=== PATIENT | male | born 1940 | race Caucasian/White ===

== ENCOUNTER 2021-01-14 11:00 | Inpatient (IN) | payer MEDICARE ==
[~2021-01-14] VITALS: Ht 177.8 cm; Wt 85.1 kg
[~2021-01-14 11:00] MED LIST: PRED20 PO
[2021-01-14] MEDS ORDERED: DEXAMETHASONE SOD PHOS 4 MG/ML VIAL IVP ONE (11:15)
[2021-01-14 11:27] LABS: BASOPHILS % (AUTO) 0.4 % (0.0-2.0); EOSINOPHILS % (AUTO) 0 % (1.0-6.0); HEMATOCRIT 50.2 % (41-53); HEMOGLOBIN 15.7 g/dL (13.5-17.5); LYMPHOCYTES # (AUTO) 1.8 K/uL (1.0-4.8); LYMPHOCYTES % (AUTO) 10.7 % (22.0-44.0); MEAN CORPUSCULAR HEMOGLOBIN 28.2 pg (26.0-34.0); MEAN CORPUSCULAR HGB CONC 31.3 G/dL (31.0-37.0); MEAN CORPUSCULAR VOLUME 90 fL (80-100); MONOCYTES # (AUTO) 0.8 K/uL (0.1-1.0); MONOCYTES % (AUTO) 4.8 % (2.0-9.0); NEUTROPHILS % (AUTO) 84.1 % (40.0-70.0); RED BLOOD CELL COUNT(AUTO) 5.58 MIL/uL (4.50-5.90); RED CELL DISTRIBUTION WIDTH 15.4 % (11.5-14.5)
[2021-01-14 11:37] LABS: INR 1.1 (0.9-1.1); PROTHROMBIN TIME 11.3 SEC (9.4-11.6)
[2021-01-14 11:45] LABS: CALCIUM, TOTAL 9.3 mg/dL (8.8-10.5); CREATININE 1.75 mg/dL (0.60-1.30)
[2021-01-14 11:47] LABS: PLATELET COUNT (AUTO) 422 K/uL (150-450)
[2021-01-14 12:25] LABS: ALBUMIN 2.3 g/dL (3.4-5.0); BILIRUBIN,TOTAL 0.5 mg/dL (0.1-1.0); TOTAL PROTEIN, SERUM 7.4 g/dL (6.4-8.2)
[2021-01-14] MEDS ORDERED: GLY IV SCH ×4 (13:00)
[2021-01-14] MEDS ORDERED: IGA AVG IV SCH ×4 (13:00)
[2021-01-14] MEDS ORDERED: IMMUNE GLOBUL IV SCH ×4 (13:00)
[2021-01-14] MEDS ORDERED: [UNRECOGNIZED DRUG - OTHER] IV SCH ×4 (13:00)
[2021-01-14 13:08] LABS: ABG A-A DIFF O2 496.7 mmHg (10-20.0); ABG BASE EXCESS -2.6 mmol/L (-2.0-3.0); ABG CARBOXYHEMOGLOBIN 0.1 % (0.0-1.5); ABG HCO3 22.7 mmol/L (22.0-26.0); ABG METHEMOGLOBIN 0.4 % (0.0-1.5); ABG OXYGEN CONTENT 22.4 mL/dL (15.0-23.0); ABG OXYGEN SATURATION 99.1 % (95.0-98.0); ABG OXYHEMOGLOBIN 98.6 % (94.0-100.0); ABG PCO2 37 mmHg (35-45); ABG PH 7.394 (7.35-7.450); ABG TOTAL HEMOGLOBIN 15.9 G/dL (12.0-18.0); PO2, ARTERIAL BG 180.1 mmHg (75.0-83.0); SOURCE, BLOOD GAS ARTERIAL; TEMPERATURE, FAHRENHEIT, BG 97.8 FAHREN (96.0-98.6)
[2021-01-14 13:09] LABS: O2 DEVICE,BLOOD GAS VENTILATOR (ROOM AIR); PEEP,BG 5 cm H2O; SITE, BLOOD GAS RT RADIAL; SPONTANEOUS VT, BG 463 ml; VT, ABG 500 ml
[2021-01-14] MEDS ORDERED: SODIUM CHLORIDE 0.9% 1,000 ML IV ONE (13:15)
[2021-01-14 13:52] LABS: COVID AG,FIA SOURCE NASOPHARYNGEAL
[2021-01-14 13:56] LABS: APPEARANCE,URINE CLOUDY (CLEAR); BILIRUBIN,URINE NEGATIVE (NEGATIVE); GLUCOSE, URINE (UA) NEGATIVE (NEGATIVE); KETONES,URINE NEGATIVE (NEGATIVE); LEUKOCYTE ESTERASE ,URINE TRACE (NEGATIVE); NITRATE,URINE NEGATIVE (NEGATIVE); OCCULT BLOOD,URINE LARGE (NEGATIVE); PH,URINE 5.5 (5.0-8.0); PROTEIN,URINE SEE CONFIRM (NEGATIVE); UROBILINOGEN,URINE 0.2 mg/dL (<=1.0)
[2021-01-14 14:19] LABS: SULFOSALICYLIC ACID,URINE 3+ (Negative)
[2021-01-14 14:20] LABS: BACTERIA,URINE Moderate /HPF (None Seen); RBC,URINE 26-50 /HPF (0-2); WBC,URINE 0-2 /HPF (0-5)
[2021-01-14] MEDS ORDERED: LevETIRAcetam 1,000 MG in DEXTROSE 5%-WATER 100 ML IV ONE (14:30)
[2021-01-14] MEDS ORDERED: 0.9% SODIUM CHLORIDE 10 ML SYRINGE IVP PRN (15:00)
[2021-01-14] MEDS ORDERED: *CLINICAL-CEFEPIME DOSING CLINICAL ONE (15:30)
[2021-01-14 16:00] VITALS: BP 96/65
[2021-01-14] MEDS: CEFEPIME HCL 1 GM in DEXTROSE 5%-WATER 50 ML IV SCH (16:46)
[2021-01-14] MEDS ORDERED: OxyCODONE HCL/ACETAMINOPHEN 5-325 MG TABLET NG PRN (17:45)
[2021-01-14] MEDS ORDERED: LORazepam 2 MG/ML VIAL IVP PRN (17:45)
[2021-01-14] MEDS ORDERED: MORPHINE SULFATE 2 MG/ML SYRINGE IVP PRN (17:45)
[2021-01-14] MEDS: MetroNIDAZOLE 500 MG/NACL 100 ML IV SCH (18:17)
[2021-01-14] MEDS: IGA AVG IV SCH ×4 (18:18)
[2021-01-14] MEDS: SODIUM CHLORIDE 0.9% 1,000 ML IV SCH (18:18)
[2021-01-14] MEDS: GLY IV SCH ×4 (18:18)
[2021-01-14] MEDS: IMMUNE GLOBUL IV SCH ×4 (18:18)
[2021-01-14] MEDS: [UNRECOGNIZED DRUG - OTHER] IV SCH ×4 (18:18)
[2021-01-14] MEDS: ALBUTEROL SULFATE 2.5 MG/0.5 ML NEB SOLUTION NEB SCH (20:06)
[2021-01-14] MEDS: IPRATROPIUM BROMIDE 0.5 MG/2.5 ML NEB SOLUTION NEB SCH (20:06)
[2021-01-14 20:22] VITALS: BP 108/68
[2021-01-14] MEDS ORDERED: LevETIRAcetam 500 MG in DEXTROSE 5%-WATER 100 ML IV SCH (21:00)
[2021-01-14 22:05] VITALS: BP 102/62
[2021-01-14] MEDS: DOCUSATE SODIUM 100 MG/10 ML LIQUID UDCUP NG SCH (22:57)
[2021-01-14] MEDS: HEPARIN SODIUM,PORCINE 5,000 UNITS/ML VIAL SQ SCH (22:58)
[2021-01-15] VITALS (11 sets, daily range): BP systolic 81–113; BP diastolic 51–80
[2021-01-15] MEDS: IPRATROPIUM BROMIDE 0.5 MG/2.5 ML NEB SOLUTION NEB SCH ×4 (01:46→19:49)
[2021-01-15] MEDS: ALBUTEROL SULFATE 2.5 MG/0.5 ML NEB SOLUTION NEB SCH ×4 (01:46→19:49)
[2021-01-15] MEDS: MetroNIDAZOLE 500 MG/NACL 100 ML IV SCH ×3 (02:24→17:20)
[2021-01-15] MEDS: SODIUM CHLORIDE 0.9% 1,000 ML IV SCH ×3 (02:41→23:09)
[2021-01-15] MEDS: PROPOFOL 1000 MG/ISO-OSM 100 ML IV PRN ×3 (04:02→23:09)
[2021-01-15] MEDS: CEFEPIME HCL 1 GM in DEXTROSE 5%-WATER 50 ML IV SCH ×2 (05:28→16:49)
[2021-01-15 05:49] LABS: BASOPHILS % (AUTO) 0.2 % (0.0-2.0); EOSINOPHILS % (AUTO) 0 % (1.0-6.0); HEMATOCRIT 38.3 % (41-53); HEMOGLOBIN 11.8 g/dL (13.5-17.5); LYMPHOCYTES # (AUTO) 1.3 K/uL (1.0-4.8); LYMPHOCYTES % (AUTO) 8.4 % (22.0-44.0); MEAN CORPUSCULAR HEMOGLOBIN 27.5 pg (26.0-34.0); MEAN CORPUSCULAR HGB CONC 30.8 G/dL (31.0-37.0); MEAN CORPUSCULAR VOLUME 89 fL (80-100); MONOCYTES # (AUTO) 0.7 K/uL (0.1-1.0); MONOCYTES % (AUTO) 4.6 % (2.0-9.0); NEUTROPHILS # (AUTO) 13.5 K/uL (1.8-7.7); PLATELET COUNT (AUTO) 252 K/uL (150-450); RED CELL DISTRIBUTION WIDTH 15.1 % (11.5-14.5)
[2021-01-15 05:53] LABS: NEUTROPHILS % (AUTO) 86.8 % (40.0-70.0)
[2021-01-15 06:33] LABS: ALBUMIN 1.6 g/dL (3.4-5.0); BILIRUBIN,TOTAL 0.3 mg/dL (0.1-1.0); CALCIUM, TOTAL 8.3 mg/dL (8.8-10.5); CREATININE 1.53 mg/dL (0.60-1.30); POTASSIUM 4.6 mmol/L (3.5-5.1); TOTAL PROTEIN, SERUM 6.3 g/dL (6.4-8.2)
[2021-01-15] MEDS: HEPARIN SODIUM,PORCINE 5,000 UNITS/ML VIAL SQ SCH ×2 (08:42→23:09)
[2021-01-15] MEDS: LANSOPRAZOLE 30 MG SOLUBLE TABLET NG SCH (08:42)
[2021-01-15] MEDS: DOCUSATE SODIUM 100 MG/10 ML LIQUID UDCUP NG SCH ×2 (08:42→21:00)
[2021-01-15] MEDS: ACETAMINOPHEN 325 MG TABLET NG PRN (08:43)
[2021-01-15] MEDS: NOREPINEPHRINE 4 MG/D5%-WATER 250 ML IV PRN (15:10)
[2021-01-15] MEDS ORDERED: ETOMIDATE 2 MG/ML 10 ML VIAL IV ONE (16:37)
[2021-01-15] MEDS: FentaNYL CITRATE PF 100 MCG/2 ML VIAL IVP PRN (16:51)
[2021-01-15] MEDS: IMMUNE GLOBUL IV SCH ×4 (17:19)
[2021-01-15] MEDS: IGA AVG IV SCH ×4 (17:19)
[2021-01-15] MEDS: [UNRECOGNIZED DRUG - OTHER] IV SCH ×4 (17:19)
[2021-01-15] MEDS: GLY IV SCH ×4 (17:19)
[2021-01-16] VITALS (8 sets, daily range): BP systolic 85–122; BP diastolic 50–73
[2021-01-16] MEDS: NOREPINEPHRINE 4 MG/D5%-WATER 250 ML IV PRN ×3 (00:22→22:30)
[2021-01-16] MEDS: SODIUM CHLORIDE 0.9% 1,000 ML IV SCH ×4 (01:45→18:19)
[2021-01-16] MEDS: ALBUTEROL SULFATE 2.5 MG/0.5 ML NEB SOLUTION NEB SCH ×4 (01:56→20:52)
[2021-01-16] MEDS: IPRATROPIUM BROMIDE 0.5 MG/2.5 ML NEB SOLUTION NEB SCH ×4 (01:58→20:52)
[2021-01-16] MEDS: MetroNIDAZOLE 500 MG/NACL 100 ML IV SCH ×3 (02:06→18:19)
[2021-01-16 04:06] LABS: HEPATITIS C AB (EIA) <0.1 s/co ratio (0.0-0.9)
[2021-01-16 05:47] LABS: BASOPHILS % (AUTO) 0.3 % (0.0-2.0); EOSINOPHILS % (AUTO) 0.2 % (1.0-6.0); HEMATOCRIT 32.7 % (41-53); HEMOGLOBIN 10.4 g/dL (13.5-17.5); LYMPHOCYTES # (AUTO) 1.8 K/uL (1.0-4.8); MEAN CORPUSCULAR HEMOGLOBIN 28.9 pg (26.0-34.0); MEAN CORPUSCULAR HGB CONC 31.7 G/dL (31.0-37.0); MEAN CORPUSCULAR VOLUME 91 fL (80-100); MONOCYTES # (AUTO) 0.7 K/uL (0.1-1.0); MONOCYTES % (AUTO) 4.8 % (2.0-9.0); NEUTROPHILS # (AUTO) 11.5 K/uL (1.8-7.7); NEUTROPHILS % (AUTO) 81.7 % (40.0-70.0); PLATELET COUNT (AUTO) 222 K/uL (150-450); RED BLOOD CELL COUNT(AUTO) 3.59 MIL/uL (4.50-5.90); RED CELL DISTRIBUTION WIDTH 15.6 % (11.5-14.5)
[2021-01-16] MEDS: CEFEPIME HCL 1 GM in DEXTROSE 5%-WATER 50 ML IV SCH ×2 (06:19→16:42)
[2021-01-16 06:21] LABS: ALBUMIN 1.5 g/dL (3.4-5.0); BILIRUBIN,TOTAL 0.3 mg/dL (0.1-1.0); CALCIUM, TOTAL 7.6 mg/dL (8.8-10.5); CREATININE 1.32 mg/dL (0.60-1.30); MAGNESIUM 2.2 mg/dL (1.80-2.40); PHOSPHORUS 3.3 mg/dL (2.5-4.9); POTASSIUM 3.6 mmol/L (3.5-5.1); TOTAL PROTEIN, SERUM 6.3 g/dL (6.4-8.2)
[2021-01-16] MEDS: PROPOFOL 1000 MG/ISO-OSM 100 ML IV PRN ×2 (07:15→23:05)
[2021-01-16] MEDS: HEPARIN SODIUM,PORCINE 5,000 UNITS/ML VIAL SQ SCH ×2 (09:03→21:56)
[2021-01-16] MEDS: DOCUSATE SODIUM 100 MG/10 ML LIQUID UDCUP NG SCH ×2 (09:03→21:56)
[2021-01-16] MEDS: LANSOPRAZOLE 30 MG SOLUBLE TABLET NG SCH (09:03)
[2021-01-16] MEDS: IGA AVG IV SCH ×4 (17:15)
[2021-01-16] MEDS: IMMUNE GLOBUL IV SCH ×4 (17:15)
[2021-01-16] MEDS: GLY IV SCH ×4 (17:15)
[2021-01-16] MEDS: [UNRECOGNIZED DRUG - OTHER] IV SCH ×4 (17:15)
[2021-01-16] MEDS ORDERED: SODIUM CHLORIDE 0.9% 250 ML IV ONE (17:17)
[2021-01-16] MEDS: FentaNYL CITRATE PF 100 MCG/2 ML VIAL IVP PRN (21:33)
[2021-01-17] MEDS: ALBUTEROL SULFATE 2.5 MG/0.5 ML NEB SOLUTION NEB SCH ×4 (01:04→19:32)
[2021-01-17] MEDS: IPRATROPIUM BROMIDE 0.5 MG/2.5 ML NEB SOLUTION NEB SCH ×4 (01:04→19:32)
[2021-01-17] MEDS: MetroNIDAZOLE 500 MG/NACL 100 ML IV SCH ×3 (02:22→17:54)
[2021-01-17] MEDS: SODIUM CHLORIDE 0.9% 1,000 ML IV SCH ×2 (03:25→09:06)
[2021-01-17] MEDS: CEFEPIME HCL 1 GM in DEXTROSE 5%-WATER 50 ML IV SCH ×2 (04:29→16:31)
[2021-01-17] MEDS: PROPOFOL 1000 MG/ISO-OSM 100 ML IV PRN ×2 (06:03→17:00)
[2021-01-17 08:00] VITALS: BP 113/65
[2021-01-17] MEDS: DOCUSATE SODIUM 100 MG/10 ML LIQUID UDCUP NG SCH ×2 (09:05→20:31)
[2021-01-17] MEDS: LANSOPRAZOLE 30 MG SOLUBLE TABLET NG SCH (09:05)
[2021-01-17] MEDS: ETHYL ALCOHOL 62% ANTISEPTIC NASAL INHALANT 0.6 ML AMPUL NASAL SCH ×2 (09:05→20:31)
[2021-01-17] MEDS: HEPARIN SODIUM,PORCINE 5,000 UNITS/ML VIAL SQ SCH ×2 (09:05→20:30)
[2021-01-17 12:00] VITALS: BP 116/58
[2021-01-17] MEDS: NOREPINEPHRINE 4 MG/D5%-WATER 250 ML IV PRN (14:35)
[2021-01-17 16:00] VITALS: BP 91/53
[2021-01-17] MEDS: [UNRECOGNIZED DRUG - OTHER] IV SCH ×4 (17:42)
[2021-01-17] MEDS: IMMUNE GLOBUL IV SCH ×4 (17:42)
[2021-01-17] MEDS: GLY IV SCH ×4 (17:42)
[2021-01-17] MEDS: IGA AVG IV SCH ×4 (17:42)
[2021-01-17 20:00] VITALS: BP 119/69
[2021-01-17 22:01] VITALS: BP 111/69
[2021-01-18] VITALS (8 sets, daily range): BP systolic 94–110; BP diastolic 52–66
[2021-01-18] MEDS: SODIUM CHLORIDE 0.9% 1,000 ML IV SCH ×4 (00:25→17:34)
[2021-01-18] MEDS: PROPOFOL 1000 MG/ISO-OSM 100 ML IV PRN ×3 (00:25→21:23)
[2021-01-18] MEDS: IPRATROPIUM BROMIDE 0.5 MG/2.5 ML NEB SOLUTION NEB SCH ×4 (01:23→19:41)
[2021-01-18] MEDS: ALBUTEROL SULFATE 2.5 MG/0.5 ML NEB SOLUTION NEB SCH ×4 (01:23→19:41)
[2021-01-18] MEDS: MetroNIDAZOLE 500 MG/NACL 100 ML IV SCH ×3 (01:57→17:45)
[2021-01-18] MEDS: CEFEPIME HCL 1 GM in DEXTROSE 5%-WATER 50 ML IV SCH ×2 (04:53→17:03)
[2021-01-18] MEDS: HEPARIN SODIUM,PORCINE 5,000 UNITS/ML VIAL SQ SCH ×2 (08:00→21:37)
[2021-01-18] MEDS: DOCUSATE SODIUM 100 MG/10 ML LIQUID UDCUP NG SCH ×2 (08:00→21:37)
[2021-01-18] MEDS: LANSOPRAZOLE 30 MG SOLUBLE TABLET NG SCH (08:01)
[2021-01-18] MEDS: ETHYL ALCOHOL 62% ANTISEPTIC NASAL INHALANT 0.6 ML AMPUL NASAL SCH ×2 (08:01→21:37)
[2021-01-18] MEDS: GLY IV SCH ×4 (17:33)
[2021-01-18] MEDS: IMMUNE GLOBUL IV SCH ×4 (17:33)
[2021-01-18] MEDS: IGA AVG IV SCH ×4 (17:33)
[2021-01-18] MEDS: [UNRECOGNIZED DRUG - OTHER] IV SCH ×4 (17:33)
[2021-01-18] MEDS ORDERED: SODIUM CHLORIDE 0.9% 250 ML IV ONE (17:46)
[2021-01-18] MEDS: NOREPINEPHRINE 4 MG/D5%-WATER 250 ML IV PRN (21:23)
[2021-01-18] MEDS: FentaNYL CITRATE PF 100 MCG/2 ML VIAL IVP PRN (21:47)
[2021-01-19 00:06] VITALS: BP 110/62
[2021-01-19] MEDS: MetroNIDAZOLE 500 MG/NACL 100 ML IV SCH ×3 (01:32→17:56)
[2021-01-19] MEDS: ALBUTEROL SULFATE 2.5 MG/0.5 ML NEB SOLUTION NEB SCH ×4 (01:45→19:38)
[2021-01-19] MEDS: SODIUM CHLORIDE 0.9% 1,000 ML IV SCH ×3 (01:45→17:56)
[2021-01-19] MEDS: IPRATROPIUM BROMIDE 0.5 MG/2.5 ML NEB SOLUTION NEB SCH ×4 (01:45→19:38)
[2021-01-19 04:30] VITALS: BP 118/64
[2021-01-19] MEDS: PROPOFOL 1000 MG/ISO-OSM 100 ML IV PRN ×3 (04:36→22:39)
[2021-01-19] MEDS: CEFEPIME HCL 1 GM in DEXTROSE 5%-WATER 50 ML IV SCH ×2 (05:11→17:02)
[2021-01-19] MEDS ORDERED: SODIUM CHLORIDE 0.9% 250 ML IV ONE (05:45)
[2021-01-19 08:00] VITALS: BP 111/62
[2021-01-19] MEDS: LANSOPRAZOLE 30 MG SOLUBLE TABLET NG SCH (08:03)
[2021-01-19] MEDS: HEPARIN SODIUM,PORCINE 5,000 UNITS/ML VIAL SQ SCH ×2 (08:03→22:18)
[2021-01-19] MEDS: ETHYL ALCOHOL 62% ANTISEPTIC NASAL INHALANT 0.6 ML AMPUL NASAL SCH ×2 (08:03→22:18)
[2021-01-19] MEDS: DOCUSATE SODIUM 100 MG/10 ML LIQUID UDCUP NG SCH ×2 (08:03→22:18)
[2021-01-19 09:20] LABS: BASOPHILS % (AUTO) 0.6 % (0.0-2.0); EOSINOPHILS % (AUTO) 5.3 % (1.0-6.0); HEMATOCRIT 32.5 % (41-53); HEMOGLOBIN 10.1 g/dL (13.5-17.5); LYMPHOCYTES # (AUTO) 1.9 K/uL (1.0-4.8); LYMPHOCYTES % (AUTO) 25.3 % (22.0-44.0); MEAN CORPUSCULAR HEMOGLOBIN 28.1 pg (26.0-34.0); MEAN CORPUSCULAR HGB CONC 31.2 G/dL (31.0-37.0); MEAN CORPUSCULAR VOLUME 90 fL (80-100); MONOCYTES # (AUTO) 0.6 K/uL (0.1-1.0); MONOCYTES % (AUTO) 8.6 % (2.0-9.0); NEUTROPHILS # (AUTO) 4.4 K/uL (1.8-7.7); NEUTROPHILS % (AUTO) 60.2 % (40.0-70.0); PLATELET COUNT (AUTO) 203 K/uL (150-450); RED BLOOD CELL COUNT(AUTO) 3.61 MIL/uL (4.50-5.90); RED CELL DISTRIBUTION WIDTH 15.5 % (11.5-14.5)
[2021-01-19 09:30] LABS: ANION GAP 7 mmol/L (8-16); CALCIUM, TOTAL 7.3 mg/dL (8.8-10.5); CARBON DIOXIDE 22 mmol/L (22-29); CHLORIDE 117 mmol/L (98-107); CREATININE 0.81 mg/dL (0.60-1.30); GLOMERULAR FILTR. RATE CALC > 60 mL/min (>60); GLUCOSE,RANDOM 123 mg/dL (70-110); POTASSIUM 3.1 mmol/L (3.5-5.1); SODIUM SERUM 146 mmol/L (136-145); UREA NITROGEN, BLOOD 12 mg/dL (7-18)
[2021-01-19 09:54] LABS: PLATELET MORPHOLOGY COMMENT LARGE PLTS PRESENT
[2021-01-19 12:00] VITALS: BP 107/56
[2021-01-19 16:00] VITALS: BP 102/53
[2021-01-19] MEDS: POTASSIUM CHL 10 MEQ/WATER 50 ML IV PRN ×3 (16:08→17:57)
[2021-01-19 20:00] VITALS: BP 118/66
[2021-01-19] MEDS: POTASSIUM CHLORIDE 10% 40 MEQ/30 ML LIQUID UDCUP PEG PRN (22:18)
[2021-01-20 00:02] VITALS: BP 113/66
[2021-01-20] MEDS: IPRATROPIUM BROMIDE 0.5 MG/2.5 ML NEB SOLUTION NEB SCH ×4 (02:09→20:19)
[2021-01-20] MEDS: ALBUTEROL SULFATE 2.5 MG/0.5 ML NEB SOLUTION NEB SCH ×4 (02:09→20:19)
[2021-01-20] MEDS: SODIUM CHLORIDE 0.9% 1,000 ML IV SCH (03:24)
[2021-01-20] MEDS: MetroNIDAZOLE 500 MG/NACL 100 ML IV SCH ×3 (03:25→18:03)
[2021-01-20 04:20] VITALS: BP 87/48
[2021-01-20] MEDS: CEFEPIME HCL 1 GM in DEXTROSE 5%-WATER 50 ML IV SCH ×2 (05:05→16:57)
[2021-01-20] MEDS: PROPOFOL 1000 MG/ISO-OSM 100 ML IV PRN ×2 (07:54→16:58)
[2021-01-20 08:00] VITALS: BP 84/47
[2021-01-20] MEDS: LANSOPRAZOLE 30 MG SOLUBLE TABLET NG SCH (08:01)
[2021-01-20] MEDS: ETHYL ALCOHOL 62% ANTISEPTIC NASAL INHALANT 0.6 ML AMPUL NASAL SCH ×2 (08:01→23:04)
[2021-01-20] MEDS: HEPARIN SODIUM,PORCINE 5,000 UNITS/ML VIAL SQ SCH ×2 (08:01→23:04)
[2021-01-20] MEDS: DOCUSATE SODIUM 100 MG/10 ML LIQUID UDCUP NG SCH ×2 (08:01→21:00)
[2021-01-20 10:20] LABS: ANION GAP 6 mmol/L (8-16); CALCIUM, TOTAL 7.4 mg/dL (8.8-10.5); CARBON DIOXIDE 24 mmol/L (22-29); CHLORIDE 118 mmol/L (98-107); CREATININE 0.79 mg/dL (0.60-1.30); GLOMERULAR FILTR. RATE CALC > 60 mL/min (>60); GLUCOSE,RANDOM 149 mg/dL (70-110); POTASSIUM 3.5 mmol/L (3.5-5.1); SODIUM SERUM 148 mmol/L (136-145); UREA NITROGEN, BLOOD 10 mg/dL (7-18)
[2021-01-20] MEDS ORDERED: SODIUM CHLORIDE 0.9% 250 ML IV ONE (11:19)
[2021-01-20] MEDS: NOREPINEPHRINE 4 MG/D5%-WATER 250 ML IV PRN (11:25)
[2021-01-20 12:00] VITALS: BP 97/53
[2021-01-20 16:00] VITALS: BP 115/66
[2021-01-20 20:00] VITALS: BP 110/52
[2021-01-20] MEDS: FentaNYL CITRATE PF 100 MCG/2 ML VIAL IVP PRN (23:04)
[2021-01-21 00:10] VITALS: BP 106/60
[2021-01-21] MEDS: ALBUTEROL SULFATE 2.5 MG/0.5 ML NEB SOLUTION NEB SCH ×4 (02:09→19:37)
[2021-01-21] MEDS: IPRATROPIUM BROMIDE 0.5 MG/2.5 ML NEB SOLUTION NEB SCH ×4 (02:09→19:37)
[2021-01-21] MEDS: MetroNIDAZOLE 500 MG/NACL 100 ML IV SCH ×3 (02:12→17:30)
[2021-01-21] MEDS: PROPOFOL 1000 MG/ISO-OSM 100 ML IV PRN ×2 (03:18→23:59)
[2021-01-21 04:20] VITALS: BP 97/53
[2021-01-21] MEDS: CEFEPIME HCL 1 GM in DEXTROSE 5%-WATER 50 ML IV SCH ×2 (05:49→17:29)
[2021-01-21 08:00] VITALS: BP 119/67
[2021-01-21 09:28] LABS: ANION GAP 6 mmol/L (8-16); CALCIUM, TOTAL 7.5 mg/dL (8.8-10.5); CARBON DIOXIDE 25 mmol/L (22-29); CHLORIDE 115 mmol/L (98-107); CREATININE 0.78 mg/dL (0.60-1.30); GLUCOSE,RANDOM 131 mg/dL (70-110); POTASSIUM 3.4 mmol/L (3.5-5.1); SODIUM SERUM 146 mmol/L (136-145); UREA NITROGEN, BLOOD 12 mg/dL (7-18)
[2021-01-21 09:49] LABS: GLOMERULAR FILTR. RATE CALC > 60 mL/min (>60); PHOSPHORUS 3.8 mg/dL (2.5-4.9)
[2021-01-21] MEDS: ETHYL ALCOHOL 62% ANTISEPTIC NASAL INHALANT 0.6 ML AMPUL NASAL SCH ×2 (10:00→20:36)
[2021-01-21] MEDS: DOCUSATE SODIUM 100 MG/10 ML LIQUID UDCUP NG SCH ×2 (10:00→20:38)
[2021-01-21] MEDS: HEPARIN SODIUM,PORCINE 5,000 UNITS/ML VIAL SQ SCH ×2 (10:00→20:36)
[2021-01-21] MEDS: LANSOPRAZOLE 30 MG SOLUBLE TABLET NG SCH (10:00)
[2021-01-21] MEDS: NOREPINEPHRINE 4 MG/D5%-WATER 250 ML IV PRN (10:09)
[2021-01-21 12:00] VITALS: BP 124/63
[2021-01-21] MEDS: POTASSIUM CHLORIDE 10% 40 MEQ/30 ML LIQUID UDCUP PEG PRN (13:51)
[2021-01-21 16:00] VITALS: BP 103/63
[2021-01-21 20:00] VITALS: BP 103/58
[2021-01-21 20:32] LABS: ANION GAP 9 mmol/L (8-16); CALCIUM, TOTAL 7.9 mg/dL (8.8-10.5); CARBON DIOXIDE 24 mmol/L (22-29); CHLORIDE 115 mmol/L (98-107); CREATININE 0.77 mg/dL (0.60-1.30); GLUCOSE,RANDOM 124 mg/dL (70-110); POTASSIUM 3.9 mmol/L (3.5-5.1); SODIUM SERUM 148 mmol/L (136-145); UREA NITROGEN, BLOOD 11 mg/dL (7-18)
[2021-01-21 20:36] LABS: GLOMERULAR FILTR. RATE CALC > 60 mL/min (>60)
[2021-01-22] VITALS (10 sets, daily range): BP systolic 92–120; BP diastolic 56–70
[2021-01-22] MEDS: MetroNIDAZOLE 500 MG/NACL 100 ML IV SCH ×3 (01:43→18:19)
[2021-01-22] MEDS: ALBUTEROL SULFATE 2.5 MG/0.5 ML NEB SOLUTION NEB SCH ×4 (02:32→19:14)
[2021-01-22] MEDS: IPRATROPIUM BROMIDE 0.5 MG/2.5 ML NEB SOLUTION NEB SCH ×4 (02:32→19:14)
[2021-01-22] MEDS: CEFEPIME HCL 1 GM in DEXTROSE 5%-WATER 50 ML IV SCH ×2 (06:08→17:06)
[2021-01-22] MEDS: NOREPINEPHRINE 4 MG/D5%-WATER 250 ML IV PRN (10:00)
[2021-01-22] MEDS: DOCUSATE SODIUM 100 MG/10 ML LIQUID UDCUP NG SCH ×2 (10:02→21:35)
[2021-01-22] MEDS: PROPOFOL 1000 MG/ISO-OSM 100 ML IV PRN (10:02)
[2021-01-22] MEDS: LANSOPRAZOLE 30 MG SOLUBLE TABLET NG SCH (10:02)
[2021-01-22] MEDS: ETHYL ALCOHOL 62% ANTISEPTIC NASAL INHALANT 0.6 ML AMPUL NASAL SCH ×2 (10:02→21:36)
[2021-01-22] MEDS: HEPARIN SODIUM,PORCINE 5,000 UNITS/ML VIAL SQ SCH ×2 (10:03→21:36)
[2021-01-23] VITALS (8 sets, daily range): BP systolic 93–132; BP diastolic 54–82
[2021-01-23] MEDS: PROPOFOL 1000 MG/ISO-OSM 100 ML IV PRN ×2 (00:27→10:41)
[2021-01-23] MEDS: IPRATROPIUM BROMIDE 0.5 MG/2.5 ML NEB SOLUTION NEB SCH ×4 (03:12→20:10)
[2021-01-23] MEDS: ALBUTEROL SULFATE 2.5 MG/0.5 ML NEB SOLUTION NEB SCH ×4 (03:12→20:10)
[2021-01-23] MEDS: DOCUSATE SODIUM 100 MG/10 ML LIQUID UDCUP NG SCH ×2 (08:29→21:09)
[2021-01-23] MEDS: LANSOPRAZOLE 30 MG SOLUBLE TABLET NG SCH (08:29)
[2021-01-23] MEDS: HEPARIN SODIUM,PORCINE 5,000 UNITS/ML VIAL SQ SCH ×2 (08:29→21:10)
[2021-01-23] MEDS: ETHYL ALCOHOL 62% ANTISEPTIC NASAL INHALANT 0.6 ML AMPUL NASAL SCH ×2 (08:29→21:16)
[2021-01-23] MEDS ORDERED: SODIUM CHLORIDE 0.9% 250 ML IV ONE (10:38)
[2021-01-24 00:01] VITALS: BP 116/71
[2021-01-24] MEDS: IPRATROPIUM BROMIDE 0.5 MG/2.5 ML NEB SOLUTION NEB SCH ×4 (01:56→19:33)
[2021-01-24] MEDS: ALBUTEROL SULFATE 2.5 MG/0.5 ML NEB SOLUTION NEB SCH ×4 (01:57→19:33)
[2021-01-24 04:46] VITALS: BP 118/82
[2021-01-24 08:00] VITALS: BP 107/59
[2021-01-24] MEDS: ETHYL ALCOHOL 62% ANTISEPTIC NASAL INHALANT 0.6 ML AMPUL NASAL SCH ×2 (08:20→22:18)
[2021-01-24] MEDS: PROPOFOL 1000 MG/ISO-OSM 100 ML IV PRN (08:21)
[2021-01-24] MEDS: LANSOPRAZOLE 30 MG SOLUBLE TABLET NG SCH (08:21)
[2021-01-24] MEDS: HEPARIN SODIUM,PORCINE 5,000 UNITS/ML VIAL SQ SCH ×2 (08:21→22:18)
[2021-01-24] MEDS: DOCUSATE SODIUM 100 MG/10 ML LIQUID UDCUP NG SCH ×2 (08:22→21:00)
[2021-01-24 12:00] VITALS: BP 118/92
[2021-01-24 16:00] VITALS: BP 86/49
[2021-01-24] MEDS: NOREPINEPHRINE 4 MG/D5%-WATER 250 ML IV PRN (19:45)
[2021-01-24 20:00] VITALS: BP 101/54
[2021-01-25] VITALS: BP 99/57
[2021-01-25] MEDS ORDERED: SODIUM CHLORIDE 0.9% 250 ML IV ONE (01:46)
[2021-01-25] MEDS: PROPOFOL 1000 MG/ISO-OSM 100 ML IV PRN ×2 (01:55→15:15)
[2021-01-25] MEDS: IPRATROPIUM BROMIDE 0.5 MG/2.5 ML NEB SOLUTION NEB SCH ×4 (02:26→19:56)
[2021-01-25] MEDS: ALBUTEROL SULFATE 2.5 MG/0.5 ML NEB SOLUTION NEB SCH ×4 (02:26→19:56)
[2021-01-25 04:00] VITALS: BP 112/66
[2021-01-25 08:00] VITALS: BP 92/59
[2021-01-25] MEDS: ETHYL ALCOHOL 62% ANTISEPTIC NASAL INHALANT 0.6 ML AMPUL NASAL SCH ×2 (08:28→20:16)
[2021-01-25] MEDS: LANSOPRAZOLE 30 MG SOLUBLE TABLET NG SCH (08:28)
[2021-01-25] MEDS: DOCUSATE SODIUM 100 MG/10 ML LIQUID UDCUP NG SCH ×2 (08:28→20:16)
[2021-01-25] MEDS: HEPARIN SODIUM,PORCINE 5,000 UNITS/ML VIAL SQ SCH ×2 (08:29→20:17)
[2021-01-25 11:17] LABS: BASOPHILS % (AUTO) 0.7 % (0.0-2.0); EOSINOPHILS % (AUTO) 4.1 % (1.0-6.0); HEMATOCRIT 33.8 % (41-53); HEMOGLOBIN 10.7 g/dL (13.5-17.5); LYMPHOCYTES # (AUTO) 2.7 K/uL (1.0-4.8); LYMPHOCYTES % (AUTO) 28.6 % (22.0-44.0); MEAN CORPUSCULAR HEMOGLOBIN 28.5 pg (26.0-34.0); MEAN CORPUSCULAR HGB CONC 31.6 G/dL (31.0-37.0); MEAN CORPUSCULAR VOLUME 90 fL (80-100); MONOCYTES # (AUTO) 0.8 K/uL (0.1-1.0); MONOCYTES % (AUTO) 8.9 % (2.0-9.0); NEUTROPHILS # (AUTO) 5.4 K/uL (1.8-7.7); NEUTROPHILS % (AUTO) 57.7 % (40.0-70.0); PLATELET COUNT (AUTO) 238 K/uL (150-450); RED BLOOD CELL COUNT(AUTO) 3.76 MIL/uL (4.50-5.90)
[2021-01-25 11:50] LABS: ANION GAP 6 mmol/L (8-16); CALCIUM, TOTAL 7.8 mg/dL (8.8-10.5); CARBON DIOXIDE 30 mmol/L (22-29); CHLORIDE 110 mmol/L (98-107); CREATININE 0.69 mg/dL (0.60-1.30); GLUCOSE,RANDOM 133 mg/dL (70-110); POTASSIUM 3.5 mmol/L (3.5-5.1); SODIUM SERUM 146 mmol/L (136-145); UREA NITROGEN, BLOOD 16 mg/dL (7-18)
[2021-01-25 11:58] LABS: GLOMERULAR FILTR. RATE CALC > 60 mL/min (>60)
[2021-01-25 12:00] VITALS: BP 107/55
[2021-01-25] MEDS ORDERED: CYANOCOBALAMIN 1,000 MCG/ML VIAL IM ONE (13:30)
[2021-01-25 16:00] VITALS: BP 91/53
[2021-01-25] MEDS: ACETAMINOPHEN 325 MG TABLET NG PRN (16:22)
[2021-01-25 20:00] VITALS: BP 140/86
[2021-01-25] MEDS: NOREPINEPHRINE 4 MG/D5%-WATER 250 ML IV PRN (20:19)
[2021-01-25] MEDS: POTASSIUM CHL 10 MEQ/WATER 50 ML IV PRN ×3 (21:06→23:42)
[2021-01-26] VITALS: BP 116/81
[2021-01-26] MEDS ORDERED: SODIUM CHLORIDE 0.9% 250 ML IV ONE (01:32)
[2021-01-26] MEDS: PROPOFOL 1000 MG/ISO-OSM 100 ML IV PRN ×3 (01:49→22:33)
[2021-01-26] MEDS: IPRATROPIUM BROMIDE 0.5 MG/2.5 ML NEB SOLUTION NEB SCH ×4 (01:59→20:00)
[2021-01-26] MEDS: ALBUTEROL SULFATE 2.5 MG/0.5 ML NEB SOLUTION NEB SCH ×4 (01:59→20:00)
[2021-01-26 04:00] VITALS: BP 97/50
[2021-01-26 06:14] LABS: ANION GAP 4 mmol/L (8-16); CALCIUM, TOTAL 8.1 mg/dL (8.8-10.5); CARBON DIOXIDE 32 mmol/L (22-29); CHLORIDE 112 mmol/L (98-107); CREATININE 0.73 mg/dL (0.60-1.30); GLOMERULAR FILTR. RATE CALC > 60 mL/min (>60); GLUCOSE,RANDOM 119 mg/dL (70-110); POTASSIUM 3.9 mmol/L (3.5-5.1); SODIUM SERUM 148 mmol/L (136-145); UREA NITROGEN, BLOOD 15 mg/dL (7-18)
[2021-01-26 08:00] VITALS: BP 95/52
[2021-01-26] MEDS: HEPARIN SODIUM,PORCINE 5,000 UNITS/ML VIAL SQ SCH ×2 (08:09→19:52)
[2021-01-26] MEDS: ETHYL ALCOHOL 62% ANTISEPTIC NASAL INHALANT 0.6 ML AMPUL NASAL SCH ×2 (08:10→19:52)
[2021-01-26] MEDS: DOCUSATE SODIUM 100 MG/10 ML LIQUID UDCUP NG SCH ×2 (08:10→21:00)
[2021-01-26] MEDS: LANSOPRAZOLE 30 MG SOLUBLE TABLET NG SCH (08:10)
[2021-01-26 12:00] VITALS: BP 97/51
[2021-01-26 16:00] VITALS: BP 94/61
[2021-01-26] MEDS: NOREPINEPHRINE 4 MG/D5%-WATER 250 ML IV PRN (19:52)
[2021-01-26 20:00] VITALS: BP 117/71
[2021-01-27] VITALS: BP 111/54
[2021-01-27] MEDS: ALBUTEROL SULFATE 2.5 MG/0.5 ML NEB SOLUTION NEB SCH ×4 (02:00→19:52)
[2021-01-27] MEDS: IPRATROPIUM BROMIDE 0.5 MG/2.5 ML NEB SOLUTION NEB SCH ×4 (02:00→19:52)
[2021-01-27 04:00] VITALS: BP 101/58
[2021-01-27] MEDS ORDERED: SODIUM CHLORIDE 0.9% 250 ML IV ONE (05:11)
[2021-01-27 08:00] VITALS: BP 94/57
[2021-01-27] MEDS: ETHYL ALCOHOL 62% ANTISEPTIC NASAL INHALANT 0.6 ML AMPUL NASAL SCH ×2 (08:07→21:38)
[2021-01-27] MEDS: LANSOPRAZOLE 30 MG SOLUBLE TABLET NG SCH (08:07)
[2021-01-27] MEDS: DOCUSATE SODIUM 100 MG/10 ML LIQUID UDCUP NG SCH ×2 (08:07→21:42)
[2021-01-27] MEDS: HEPARIN SODIUM,PORCINE 5,000 UNITS/ML VIAL SQ SCH ×2 (08:07→21:41)
[2021-01-27] MEDS: PROPOFOL 1000 MG/ISO-OSM 100 ML IV PRN (09:10)
[2021-01-27 10:07] LABS: BASOPHILS % (AUTO) 0.7 % (0.0-2.0); EOSINOPHILS % (AUTO) 4.9 % (1.0-6.0); HEMATOCRIT 32.9 % (41-53); HEMOGLOBIN 10.3 g/dL (13.5-17.5); LYMPHOCYTES # (AUTO) 2.8 K/uL (1.0-4.8); LYMPHOCYTES % (AUTO) 28.2 % (22.0-44.0); MEAN CORPUSCULAR HEMOGLOBIN 28.2 pg (26.0-34.0); MEAN CORPUSCULAR HGB CONC 31.3 G/dL (31.0-37.0); MEAN CORPUSCULAR VOLUME 90 fL (80-100); MONOCYTES # (AUTO) 0.6 K/uL (0.1-1.0); MONOCYTES % (AUTO) 6.6 % (2.0-9.0); NEUTROPHILS # (AUTO) 5.9 K/uL (1.8-7.7); NEUTROPHILS % (AUTO) 59.6 % (40.0-70.0); PLATELET COUNT (AUTO) 242 K/uL (150-450); RED BLOOD CELL COUNT(AUTO) 3.65 MIL/uL (4.50-5.90); RED CELL DISTRIBUTION WIDTH 17.1 % (11.5-14.5)
[2021-01-27 10:11] LABS: ANION GAP 2 mmol/L (8-16); CALCIUM, TOTAL 8.1 mg/dL (8.8-10.5); CARBON DIOXIDE 34 mmol/L (22-29); CHLORIDE 109 mmol/L (98-107); CREATININE 0.64 mg/dL (0.60-1.30); GLOMERULAR FILTR. RATE CALC > 60 mL/min (>60); GLUCOSE,RANDOM 126 mg/dL (70-110); POTASSIUM 3.7 mmol/L (3.5-5.1); SODIUM SERUM 145 mmol/L (136-145); UREA NITROGEN, BLOOD 15 mg/dL (7-18)
[2021-01-27 12:00] VITALS: BP 99/59
[2021-01-27] MEDS: DEXMEDETOMIDINE HCL 200 MCG in SODIUM CHLORIDE 0.9% 48 ML IV PRN ×2 (15:50→21:40)
[2021-01-27 16:00] VITALS: BP 100/57
[2021-01-27 20:00] VITALS: BP 97/46
[2021-01-27] MEDS: NOREPINEPHRINE 4 MG/D5%-WATER 250 ML IV PRN (21:40)
[2021-01-28] VITALS (10 sets, daily range): BP systolic 93–127; BP diastolic 33–64
[2021-01-28] MEDS: ALBUTEROL SULFATE 2.5 MG/0.5 ML NEB SOLUTION NEB SCH ×4 (02:27→19:38)
[2021-01-28] MEDS: IPRATROPIUM BROMIDE 0.5 MG/2.5 ML NEB SOLUTION NEB SCH ×4 (02:28→19:38)
[2021-01-28] MEDS: ETHYL ALCOHOL 62% ANTISEPTIC NASAL INHALANT 0.6 ML AMPUL NASAL SCH ×2 (08:52→22:01)
[2021-01-28] MEDS: HEPARIN SODIUM,PORCINE 5,000 UNITS/ML VIAL SQ SCH ×2 (08:53→22:01)
[2021-01-28] MEDS: LANSOPRAZOLE 30 MG SOLUBLE TABLET NG SCH (08:53)
[2021-01-28] MEDS: DOCUSATE SODIUM 100 MG/10 ML LIQUID UDCUP NG SCH ×2 (08:53→22:01)
[2021-01-28] MEDS: ACETAMINOPHEN 325 MG TABLET NG PRN (08:54)
[2021-01-28] MEDS: DEXMEDETOMIDINE HCL 200 MCG in SODIUM CHLORIDE 0.9% 48 ML IV PRN (12:30)
[2021-01-28] MEDS: FentaNYL CITRATE PF 100 MCG/2 ML VIAL IVP PRN (15:22)
[2021-01-28] MEDS ORDERED: ROCURONIUM BROMIDE 10 MG/ML 5 ML VIAL IVP ONE (15:30)
[2021-01-28] MEDS: PROPOFOL 1000 MG/ISO-OSM 100 ML IV PRN (15:31)
[2021-01-28] MEDS: NOREPINEPHRINE 4 MG/D5%-WATER 250 ML IV PRN (15:32)
[2021-01-29] VITALS (12 sets, daily range): BP systolic 84–129; BP diastolic 47–73
[2021-01-29] MEDS: IPRATROPIUM BROMIDE 0.5 MG/2.5 ML NEB SOLUTION NEB SCH ×4 (02:18→19:41)
[2021-01-29] MEDS: ALBUTEROL SULFATE 2.5 MG/0.5 ML NEB SOLUTION NEB SCH ×4 (02:18→19:41)
[2021-01-29] MEDS: FentaNYL CITRATE PF 100 MCG/2 ML VIAL IVP PRN ×2 (08:01→14:45)
[2021-01-29] MEDS: DOCUSATE SODIUM 100 MG/10 ML LIQUID UDCUP NG SCH ×2 (08:01→21:12)
[2021-01-29] MEDS: HEPARIN SODIUM,PORCINE 5,000 UNITS/ML VIAL SQ SCH ×2 (08:01→21:12)
[2021-01-29] MEDS: LANSOPRAZOLE 30 MG SOLUBLE TABLET NG SCH (08:01)
[2021-01-29] MEDS: ETHYL ALCOHOL 62% ANTISEPTIC NASAL INHALANT 0.6 ML AMPUL NASAL SCH ×2 (08:02→21:12)
[2021-01-30] VITALS (14 sets, daily range): BP systolic 80–128; BP diastolic 40–74
[2021-01-30] MEDS: ALBUTEROL SULFATE 2.5 MG/0.5 ML NEB SOLUTION NEB SCH ×4 (01:51→19:30)
[2021-01-30] MEDS: IPRATROPIUM BROMIDE 0.5 MG/2.5 ML NEB SOLUTION NEB SCH ×4 (01:51→19:30)
[2021-01-30] MEDS: DOCUSATE SODIUM 100 MG/10 ML LIQUID UDCUP NG SCH ×2 (08:23→21:00)
[2021-01-30] MEDS: ETHYL ALCOHOL 62% ANTISEPTIC NASAL INHALANT 0.6 ML AMPUL NASAL SCH ×2 (08:23→21:43)
[2021-01-30] MEDS: LANSOPRAZOLE 30 MG SOLUBLE TABLET NG SCH (08:23)
[2021-01-30] MEDS: ACETAMINOPHEN 325 MG TABLET NG PRN ×2 (08:24→21:56)
[2021-01-30] MEDS: HEPARIN SODIUM,PORCINE 5,000 UNITS/ML VIAL SQ SCH ×2 (08:24→21:54)
[2021-01-30 08:47] LABS: BAND NEUTROPHILS % (MANUAL) 0 % (0-5)
[2021-01-30 08:49] LABS: HEMOGLOBIN 10.2 g/dL (13.5-17.5); MEAN CORPUSCULAR HEMOGLOBIN 28.2 pg (26.0-34.0); MEAN CORPUSCULAR VOLUME 91 fL (80-100); PLATELET COUNT (AUTO) 200 K/uL (150-450); RED BLOOD CELL COUNT(AUTO) 3.62 MIL/uL (4.50-5.90); RED CELL DISTRIBUTION WIDTH 17.5 % (11.5-14.5)
[2021-01-30 09:02] LABS: ANION GAP 3 mmol/L (8-16); CALCIUM, TOTAL 7.9 mg/dL (8.8-10.5); CARBON DIOXIDE 33 mmol/L (22-29); CHLORIDE 101 mmol/L (98-107); CREATININE 0.69 mg/dL (0.60-1.30); GLUCOSE,RANDOM 121 mg/dL (70-110); PHOSPHORUS 2.1 mg/dL (2.5-4.9); POTASSIUM 3.9 mmol/L (3.5-5.1); SODIUM SERUM 137 mmol/L (136-145); UREA NITROGEN, BLOOD 20 mg/dL (7-18)
[2021-01-30 09:03] LABS: GLOMERULAR FILTR. RATE CALC > 60 mL/min (>60)
[2021-01-30 09:11] LABS: LYMPHOCYTES % (MANUAL) 16 % (22-44); MONOCYTES % (MANUAL) 1 % (2-9); SEGMENTED NEUTROPHILS % 83 % (40-70)
[2021-01-30 11:08] LABS: APPEARANCE,URINE TURBID (CLEAR); BILIRUBIN,URINE NEGATIVE (NEGATIVE); GLUCOSE, URINE (UA) NEGATIVE (NEGATIVE); KETONES,URINE NEGATIVE (NEGATIVE); NITRATE,URINE POSITIVE (NEGATIVE); PH,URINE 5.5 (5.0-8.0); PROTEIN,URINE SEE CONFIRM (NEGATIVE)
[2021-01-30 11:13] LABS: LEUKOCYTE ESTERASE ,URINE LARGE (NEGATIVE); OCCULT BLOOD,URINE MODERATE (NEGATIVE); SULFOSALICYLIC ACID,URINE 2+ (Negative)
[2021-01-30 11:14] LABS: BACTERIA,URINE Moderate /HPF (None Seen); WBC,URINE >100 /HPF (0-5)
[2021-01-30] MEDS ORDERED: SODIUM CHLORIDE 0.9% 500 ML IV ONE ×2 (13:41→15:40)
[2021-01-31] VITALS (11 sets, daily range): BP systolic 86–116; BP diastolic 47–58
[2021-01-31] MEDS: ALBUTEROL SULFATE 2.5 MG/0.5 ML NEB SOLUTION NEB SCH ×4 (01:07→19:56)
[2021-01-31] MEDS: IPRATROPIUM BROMIDE 0.5 MG/2.5 ML NEB SOLUTION NEB SCH ×4 (01:07→19:56)
[2021-01-31] MEDS: DOCUSATE SODIUM 100 MG/10 ML LIQUID UDCUP NG SCH ×2 (07:29→21:00)
[2021-01-31] MEDS: LANSOPRAZOLE 30 MG SOLUBLE TABLET NG SCH (09:50)
[2021-01-31] MEDS: HEPARIN SODIUM,PORCINE 5,000 UNITS/ML VIAL SQ SCH ×2 (09:50→21:14)
[2021-01-31] MEDS: ETHYL ALCOHOL 62% ANTISEPTIC NASAL INHALANT 0.6 ML AMPUL NASAL SCH ×2 (09:50→21:14)
[2021-01-31] MEDS ORDERED: AMPICILLIN SODIUM/SULBACTAM NA 1.5 GM in SODIUM CHLORIDE 0.9% 50 ML IV SCH (11:30)
[2021-01-31] MEDS: AMPICILLIN SODIUM/SULBACTAM NA 3 GM in SODIUM CHLORIDE 0.9% 100 ML IV SCH ×2 (13:42→18:43)
[2021-01-31] MEDS: ACETAMINOPHEN 325 MG TABLET NG PRN ×2 (14:20→21:13)
[2021-02-01] MEDS: AMPICILLIN SODIUM/SULBACTAM NA 3 GM in SODIUM CHLORIDE 0.9% 100 ML IV SCH ×4 (00:25→18:04)
[2021-02-01 00:28] VITALS: BP 111/66
[2021-02-01] MEDS: ALBUTEROL SULFATE 2.5 MG/0.5 ML NEB SOLUTION NEB SCH ×3 (01:30→13:50)
[2021-02-01] MEDS: IPRATROPIUM BROMIDE 0.5 MG/2.5 ML NEB SOLUTION NEB SCH ×3 (01:30→13:50)
[2021-02-01 04:38] VITALS: BP 100/61
[2021-02-01 07:30] VITALS: BP 117/56
[2021-02-01] MEDS: LANSOPRAZOLE 30 MG SOLUBLE TABLET NG SCH (08:19)
[2021-02-01] MEDS: HEPARIN SODIUM,PORCINE 5,000 UNITS/ML VIAL SQ SCH (08:19)
[2021-02-01] MEDS: DOCUSATE SODIUM 100 MG/10 ML LIQUID UDCUP NG SCH (08:19)
[2021-02-01] MEDS: ACETAMINOPHEN 325 MG TABLET NG PRN (08:20)
[2021-02-01 13:34] VITALS: BP 129/62
[2021-02-01 16:30] VITALS: BP 138/76
== END 2021-02-01 19:30 | DRG 4 ==
LOC: EMS 11:00 → ICU 15:29 → 5S 01-31 23:52
PROVIDERS: ADMIT Internal Medicine; ATTEND Internal Medicine
PROC: 0BH17EZ Insertion of Endotracheal Airway into Trachea, Via Natural or Artificial Opening (ICD-10-PCS; principal; 2021-01-14)
PROC: 5A1955Z Respiratory Ventilation, Greater than 96 Consecutive Hours (ICD-10-PCS; 2021-01-14)
PROC: 02HV33Z Insertion of Infusion Device into Superior Vena Cava, Percutaneous Approach (ICD-10-PCS; 2021-01-14)
PROC: 0B113F4 Bypass Trachea to Cutaneous with Tracheostomy Device, Percutaneous Approach (ICD-10-PCS; 2021-01-28)
PROC: 0B9D8ZX Drainage of Right Middle Lung Lobe, Via Natural or Artificial Opening Endoscopic, Diagnostic (ICD-10-PCS; 2021-01-28)
DX: A41.9 Sepsis, unspecified organism (principal); L89.204 Pressure ulcer of unspecified hip, stage 4; J69.0 Pneumonitis due to inhalation of food and vomit; G70.01 Myasthenia gravis with (acute) exacerbation; J96.01 Acute respiratory failure with hypoxia; N17.0 Acute kidney failure with tubular necrosis; R65.21 Severe sepsis with septic shock; E43 Unspecified severe protein-calorie malnutrition; E87.0 Hyperosmolality and hypernatremia; E87.1 Hypo-osmolality and hyponatremia; M62.82 Rhabdomyolysis; N39.0 Urinary tract infection, site not specified; Z99.11 Dependence on respirator [ventilator] status; I12.9 Hypertensive chronic kidney disease with stage 1 through stage 4 chronic kidney disease, or unspecified chronic kidney disease; R74.01 Elevation of levels of liver transaminase levels; N18.9 Chronic kidney disease, unspecified; R73.9 Hyperglycemia, unspecified; R56.9 Unspecified convulsions; M19.90 Unspecified osteoarthritis, unspecified site; Z51.5 Encounter for palliative care; Z20.822 Contact with and (suspected) exposure to COVID-19
CPT/HCPCS: 36245; 36569; 36600; 71045; 71250; 76937; 80048; 80053; 80074; 81001; 81002; 82550; 82805; 83735; 83880; 84100; 84132; 84145; 84484; 85007; 85025; 85027; 85610; 85730; 87040; 87070; 87077; 87081; 87086; 87186; 87205; 93005; 94002; 94003; 94640; 99285; G0378; J0295; J0692; J0712; J1100; J1459; J1644; J2060; J2704; J3010; J3420; J3480; J3490; J7030; J7040; J7050; J7060; Q9967; 36415-L1; 36415-TC; J7613; U0003